=== PATIENT | female | born 1970 | race Two or more races ===

== ENCOUNTER 2024-06-15 12:10 | Day surgery (SDC) | payer MEDICAID, SELFPAY ==
[2024-06-15] VITALS (9 sets, daily range): BP systolic 81–150; BP diastolic 58–85; PULSE 62–85; RESP 13–24; TEMP 36.3–36.9; O2SAT 99–100; BMI 23.2
[2024-06-15] MEDS: fentaNYL CIT INJ 50 mCg/ML AMP 2ML (ASD USE ONLY) IV (14:03)
[2024-06-15] MEDS: MIDAZOLAM INJ 1 MG/ML VIAL 2 ML (ASD USE ONLY) 2 MG IV (14:05)
[2024-06-15] MEDS: DiphenhydrAMINE INJ 50 MG/ML VIAL 25 MG IV (14:05)
--- NOTE | 2024-06-15 15:40 | SUR.PHASEII ---
1422: Pt into recovery. Report from Jaqueline DUNN. Pt sleepy. Easily aroused with eye opening then will drift back to sleep. Denies pain, discomfort. 1452: Pt more awake, alert. VS stable. Denies pain. Sitting up tolerating po fluids with no difficulty swallowing and no n/v. 1456: Pt fully awake, oriented x3. Pt assisted to restroom. Ambulation steady. 1508: Pt dressed and in transport chair. Pt and son stated understanding of discharge instructions. Pt discharged from [facility] in stable condition.
== END 2024-06-15 15:08 | disposition home or self-care (01) ==
PROVIDERS: PCP Obstetrics & Gynecology; Referring Provider Surgery; Visit Provider Surgery
PROC: 0DBE8ZX Excision of Large Intestine, Via Natural or Artificial Opening Endoscopic, Diagnostic (ICD-10-PCS; CPT 45380; principal; 2024-06-15 13:45)
DX: Z12.11 Encounter for screening for malignant neoplasm of colon (principal)
CPT/HCPCS: 45378; J1200; J2250; J3010

== ENCOUNTER → 2024-06-20 | Outpatient (CLI) | payer MEDICAID, SELFPAY ==
--- NOTE | 2024-06-20 16:00 | XR_ITS ---
Examination: Breast ultrasound, unilateral, right complete Date and time of exam: June 20, 2024 1618 hours INDICATIONS: Mammogram 01/23/2024 nodular breast architecture both breasts Technique: Real-time krishna scale ultrasonographic imaging performed right breast including all 4 quadrants as well as nipple retroareolar and axillary region. Findings: Sonographic images right breast 9:00 cyst 9 x 4 x 8 mm 9:00 solid nodule lobular margins 7 x 7 x 8 mm 10:00 cyst 12 x 6 x 18 mm IMPRESSION: BI-RADS Category 3: Probably benign findings Recommend 1 additional 6 month right breast sonogram follow-up to document stability of 9:00 nodule described above
== END | disposition home or self-care (01) ==
PROVIDERS: Referring Provider Nurse Practitioner Family; Visit Provider Nurse Practitioner Family
DX: N63.15 Unspecified lump in the right breast, overlapping quadrants (principal)
CPT/HCPCS: 76641